=== PATIENT | male | born 1985 | race Caucasian/White ===

== ENCOUNTER 2017-05-10 22:05 | Emergency (ER) | payer BC, MEDICAID ==
[2017-05-10] MEDS ORDERED: Amoxicillin/Potassium Clav 875 MG TAB ONE (23:14)
[2017-05-10] MEDS ORDERED: Ibuprofen 800 MG TAB ONE (23:14)
[2017-05-10] MEDS ORDERED: predniSONE 20 MG TAB ONE (23:14)
== END 2017-05-10 23:21 | disposition home or self-care (01) ==
LOC: MADERS 22:05
DX: R05 Cough (principal); I10 Essential (primary) hypertension; F17.210 Nicotine dependence, cigarettes, uncomplicated
CPT/HCPCS: 99283; J7506